=== PATIENT | male | born 1985 | race Caucasian/White ===

== ENCOUNTER 2017-04-21 13:17 | Emergency (ER) | payer MEDICAID ==
[~2017-04-21] VITALS: Ht 182.9 cm; Wt 106.5 kg
[2017-04-21 13:20] VITALS: Ht 182.9 cm; Wt 106.5 kg
[2017-04-21] MEDS ORDERED: IBUP-1542 PO (14:21)
[2017-04-21] MEDS ORDERED: AMO500 PO (14:22)
--- NOTE | 2017-04-21 14:28 | ERD ---
ER Documentation Chief Complaint Date/Time DATE: 04/21/17 TIME: 14:25 Chief Complaint left ear pain HPI Patient is a 32-year-old male presents to the ED with left ear pain 1 week. Patient denies any active discharge or bleeding. Patient denies any recent water activities. Patient denies any fevers, rhinorrhea, cough, sore throat, chest pain, shortness of breath or loss consciousness. Of note patient does have sick contacts at home. No recent travel. ROS All systems reviewed and are negative except as per history of present illness. 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 Appears in no acute distress. HEAD: Normocephalic, atraumatic. Facial abnormality noted, congenital. EYES: Pupils are equally reactive bilaterally. EOMs grossly intact. No conjunctival erythema. 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 Left auditory canal appears erythematous. Left tympanic membrane appears erythematous. Moist mucous membranes. No uvula deviation. No kissing tonsils. Nontender to bilateral mastoid processes NECK: Supple. No meningismus. Normal range of motion of the neck. LUNG: Clear to auscultation bilaterally. No rhonchi, wheezing, rales or coarse breath sounds. HEART: Regular rate and rhythm. No murmurs, rubs or gallops. EXTREMITIES: Equal pulses bilaterally. No peripheral clubbing, cyanosis or edema. No unilateral leg swelling. NEUROLOGIC: Alert and oriented. Moving all four extremities without any difficulty. Normal speech. Steady gait. SKIN: Normal color. Warm and dry. No rashes or lesions. Procedures/MDM MEDICAL DECISION MAKING: Patient is a 38-year-old male who presents with left ear pain 1 week. Vital signs were reviewed. Patient was afebrile. Patient was not hypoxic. At this time , patient's presentation is most consistent with otitis externa and acute otitis media of the left ear. I have a much lower clinical suspicion for tympanic membrane perforation, mastoiditis, otic barotrauma, TMJ dysfunction. PRESCRIPTIONS: Amoxicillin, ibuprofen DISCHARGE: At this time, patient is stable for discharge and outpatient management. I have instructed the patient to follow-up with his/her primary care physician in 1-2 days. I have discussed with the patient the possibility of needing to see a specialist for further workup and diagnostic studies if the pain persists. I have instructed the patient to promptly return to the ER at any time for any new or worsening symptoms including increased pain, fever, swelling, discharge or hearing loss. The patient and/or family expressed understanding of and agreement with this plan. All questions were answered. Home care instructions were provided. Departure Diagnosis: Primary Impression: Otitis media Otitis media type: unspecified Laterality: left Chronicity: unspecified Qualified Code: H66.92 - Left otitis media, unspecified chronicity, unspecified otitis media type Condition: Stable Patient Instructions: Otitis Media, Abx Tx (Adult) Referrals: [facility] YOU HAVE RECEIVED A MEDICAL SCREENING EXAM AND THE RESULTS INDICATE THAT YOU DO NOT HAVE A CONDITION THAT REQUIRES URGENT TREATMENT IN THE EMERGENCY DEPARTMENT. FURTHER EVALUATION AND TREATMENT OF YOUR CONDITION CAN WAIT UNTIL YOU ARE SEEN IN YOUR DOCTORS OFFICE WITHIN THE NEXT 1-2 DAYS. IT IS YOUR RESPONSIBILITY TO MAKE AN APPOINTMENT FOR FOLOW-UP CARE. IF YOU HAVE A PRIMARY DOCTOR --you should call your primary doctor and schedule an appointment IF YOU DO NOT HAVE A PRIMARY DOCTOR YOU CAN CALL OUR PHYSICIAN REFERRAL HOTLINE AT IF YOU CAN NOT AFFORD TO SEE A PHYSICIAN YOU CAN CHOSE FROM THE FOLLOWING [facility] [address] [facility]. [facility] [address] [facility] [address] [facility] [address] [facility]. [facility] [address] [facility]. [facility]. [address] [facility]. [facility] YOU HAVE RECEIVED A MEDICAL SCREENING EXAM AND THE RESULTS INDICATE THAT YOU DO NOT HAVE A CONDITION THAT REQUIRES URGENT TREATMENT IN THE EMERGENCY DEPARTMENT. FURTHER EVALUATION AND TREATMENT OF YOUR CONDITION CAN WAIT UNTIL YOU ARE SEEN IN YOUR DOCTORS OFFICE WITHIN THE NEXT 1-2 DAYS. IT IS YOUR RESPONSIBILITY TO MAKE AN APPOINTMENT FOR FOLOW-UP CARE. IF YOU HAVE A PRIMARY DOCTOR --you should call your primary doctor and schedule and appointment IF YOU DO NOT HAVE A PRIMARY DOCTOR YOU CAN CALL OUR PHYSICIAN REFERRAL HOTLINE AT . IF YOU CAN NOT AFFORD TO SEE A PHYSICIAN YOU CAN CHOSE FROM THE FOLLOWING [facility] INSTITUTIONS: [facility] [address] [place] [address] [facility] [address] [place], [place] [id number] [place] [address] [address] [place] [address] Additional Instructions: Llame al doctor MAANA y roderick vickey ADY PARA DENTRO DE 1-2 BELTRÁN.Dgale a la secretaria que nosotros le instruimos hacer esta ady.Avise o llame si medina condicin se empeora antes de la ady. Regresa aqui si peor o no mejor. ANT MARTINEZ PA-C Apr 21, 2017 14:28
== END 2017-04-21 14:28 | disposition home or self-care (01) ==
LOC: E/R 13:17
DX: H66.92 Otitis media, unspecified, left ear (principal)
CPT/HCPCS: 99283

== ENCOUNTER 2017-08-26 21:04 | Emergency (ER) | payer MEDICAID ==
[~2017-08-26] VITALS: Ht 177.8 cm; Wt 108.0 kg
[~2017-08-26 21:04] MED LIST: AMOX500C2 PO; IBUP-1542 PO
[2017-08-26 21:09] VITALS: Ht 177.8 cm; Wt 108.0 kg
[2017-08-27] MEDS ORDERED: FLUORESCEIN STRIP LEFT EYE ONE (02:30)
[2017-08-27] MEDS ORDERED: TETRACAINE 0.5% 4 ML OPH LEFT EYE ONE (02:30)
--- NOTE | 2017-08-27 02:40 | ERD ---
ER Documentation Chief Complaint Date/Time DATE: 08/27/17 TIME: 02:39 Chief Complaint c/o left eye pain. States there is a piece of tile on eye. Vision OK HPI 32-year-old male presents to emergency department for complaints of a foreign body sensation in the left eye, patient was cutting tile, a piece of it went inside his left eye. Patient's complaint of pain sharp pain, 4/10 scale, as was upon opening and closing the eye, is complaining of tearing. Patient denies any vision changes. ROS All systems reviewed and are negative except as per history of present illness. Medications Home Meds Active Scripts Moxifloxacin Hcl* (Vigamox*) 0.5% - 3 Ml Opht, 1 DROP LEFT EYE TID, #1 EA Prov:CHULA FERRARI NP 08/27/17 Amoxicillin* (Amoxicillin*) 500 Mg Cap, 500 MG PO BID for 10 Days, CAP Prov:ANT MARTINEZ PA-C 04/21/17 Ibuprofen* (Motrin*) 600 Mg Tab, 600 MG PO Q6, #15 TAB Prov:ANT MARTINEZ PA-C 04/21/17 Reported Medications [None] No Conflict Check 06/26/13 Allergies Allergies: Coded Allergies: No Known Drug Allergies (Verified Allergy, 06/26/13) PMhx/Soc History of Surgery: Yes (APPENDECTOMY) Anesthesia Reaction: No Hx Neurological Disorder: No Hx Respiratory Disorders: No Hx Cardiac Disorders: No Hx Psychiatric Problems: No 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 Bilateral eyes are PERRLA EOM intact, left eye conjunctiva noted to be erythematous. Ears: Normal tympanic membrane, no erythema or bulging. No ear canal swelling. No ear discharge. Nose: normal nasal turbinates , no erythema or swelling. Normal nasal discharge. Throat: oropharynx clear. No tonsillar swelling or tonsillar exudates. No lymphadenopathy. CHEST: Clear to auscultation bilaterally. There are no rales, wheezes or rhonchi. HEART: Regular rate and rhythm. No murmurs, clicks, rubs or gallops. No S3 or S4. ABDOMEN: Soft, nontender and nondistended. Good bowel sounds. No rebound or guarding. No gross peritonitis. No gross organomegaly or masses. No Kyle sign or McBurney point tenderness. BACK: No midline or flank tenderness. EXTREMITIES: Equal pulses bilaterally. There is no peripheral clubbing, cyanosis or edema. No focal swelling or erythema. Full range of motion. Grossly neurovascularly intact. NEURO: Alert and oriented. Cranial nerves 2-12 intact. Motor strength in all 4 extremities with 5/5 strength. Sensation grossly intact. Normal speech and gait. SKIN: There is no apparent rash or petechia. The skin is warm and dry. HEMATOLOGIC AND LYMPHATIC: There is no evidence of excessive bruising or lymphedema. No gross cervical, axillary, or inguinal lymphadenopathy. Results 24 hrs Current Medications Medications (Trade) Dose Ordered Sig/Honey Route PRN Reason Start Time Stop Time Status Last Admin Dose Admin Tetracaine HCl (Tetracaine 0.5% Steri-Unit Cathy) 1 drop ONCE ONCE LEFT EYE 08/27/17 02:30 08/27/17 02:31 DC Fluorescein Sodium (Pagsr-I-Yxejx) 1 strip ONCE ONCE LEFT EYE 08/27/17 02:30 08/27/17 02:31 DC Irrigating Solution (Eye Wash) 1 applic ONCE ONCE LEFT EYE 08/27/17 03:30 08/27/17 03:31 Procedures/[facility] Procedure Note: After obtaining informed consent, the left eye was stained using fluorescein dye. After staining the eye, A Wood's lamp was used to evaluate the eye. There is no foreign body noted in the eye. No corneal abrasions noted. Patient tolerated procedure well. Eye wash was done afterwards. Medical decision making: Patient symptoms was likely is consistent with conjunctival abrasion. No foreign body, no corneal abrasion noted. No symptoms of any other eye emergencies at this time. Prescription was given for Vigamox, is advised to see ophthalmology doctor for further evaluation of symptoms. Patient is advised to return to emergency department for any worsening symptoms. Disposition: Home. Stable. Departure Diagnosis: Primary Impression: Conjunctival abrasion Encounter type: initial encounter Laterality: left Qualified Code: S05.02XA - Abrasion of left conjunctiva, initial encounter Condition: Stable CHULA FERRARI NP Aug 27, 2017 02:40
[2017-08-27] MEDS ORDERED: VIGA LEFT EYE (03:18)
[2017-08-27] MEDS ORDERED: OPHTHALMIC IRRIG SOLUTION 120 ML LEFT EYE ONE (03:30)
== END 2017-08-27 04:03 | disposition home or self-care (01) ==
LOC: FTE 21:04
DX: S05.02XA Injury of conjunctiva and corneal abrasion without foreign body, left eye, initial encounter (principal); F17.210 Nicotine dependence, cigarettes, uncomplicated; X58.XXXA Exposure to other specified factors, initial encounter; Y92.9 Unspecified place or not applicable
CPT/HCPCS: Z7502; Z7610; 99283

== ENCOUNTER 2018-02-23 02:00 | Emergency (ER) | END 2018-02-23 05:09 | disposition home or self-care (01) ==

== ENCOUNTER 2018-11-12 20:22 | Emergency (ER) | payer MEDICAID ==
[~2018-11-12] VITALS: Ht 180.3 cm; Wt 113.0 kg
[~2018-11-12 20:22] MED LIST changes: +HYDR-4011 PO; +NAPR-985 PO; +VIGA LEFT EYE
[2018-11-12 20:25] VITALS: Ht 180.3 cm; Wt 113.0 kg
[2018-11-13] MEDS ORDERED: ONDANSETRON 4 MG INJ IV STA (00:12)
[2018-11-13] MEDS ORDERED: morphine 4 MG/ML VIAL IV STA (00:12)
--- NOTE | 2018-11-13 01:45 | ERD ---
ER Documentation Chief Complaint Chief Complaint chest pain since 0300am HPI This is a 33-year-old male who said he had the onset yesterday morning, November 12, at 3 AM with sharp parasternal chest pain described as sharp tearing sens ation. He said he had no lifting pushing pulling injury. He said that the pain is worse when he moves somewhat. He said that he had a brief cough. He said that he was short of breath at the onset but not since then. He said that he tried taking some Tums but it did not change. He took some Tylenol which helped a little bit. No palpitations dizziness or syncope. ROS All systems reviewed and are negative except as per history of present illness. Medications Home Meds Reported Medications Acetaminophen* (Acetaminophen*) 500 MG Extra Strength Tablet, 1000 MG PO Q4H PRN for PAIN AND OR ELEVATED TEMP, TAB 11/13/18 Discontinued Reported Medications [None] No Conflict Check 06/26/13 Discontinued Scripts Hydrocodone/Acetaminophen ([place] 5-325 Tablet) 1 Each Tablet, 1 TAB PO Q6H PRN for PAIN, #7 TAB Prov:GINGER BROWER PA-C 02/23/18 Naproxen* (Naprosyn*) 500 Mg Tablet, 500 MG PO BID PRN for PAIN AND/OR INFLAMMATION, #30 TAB Prov:BEAU HOWARD PA-C 02/23/18 Moxifloxacin Hcl* (Vigamox*) 0.5% - 3 Ml Opht, 1 DROP LEFT EYE TID, #1 EA Prov:CHULA FERRARI NP 08/27/17 Amoxicillin* (Amoxicillin*) 500 Mg Cap, 500 MG PO BID for 10 Days, CAP Prov:ANT MARTINEZ PA-C 04/21/17 Ibuprofen* (Motrin*) 600 Mg Tab, 600 MG PO Q6, #15 TAB Prov:ANT MARTINEZ PA-C 04/21/17 Allergies Allergies: Coded Allergies: No Known Drug Allergies (Unverified Allergy, Unknown, 11/13/18) PMhx/Soc History of Surgery: Yes (APPENDECTOMY) Anesthesia Reaction: No Hx Neurological Disorder: No Hx Respiratory Disorders: No Hx Cardiac Disorders: No Hx Psychiatric Problems: No 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 Neck: Full range of motion. No meningismus, no lymphadenopathy. Resp: Clear to auscultation bilaterally, no wheezing, rhonchi, rales, there is reproducible chest pain to the bilateral parasternal costal sternal margins with palpation. I had the patient sit up from supine he said that hurt when he sat up doing the motion with his thoracic trunk Cardio: Regular rate and rhythm, no murmurs, S1 S2 present Abd: Soft, non tender x 4, non distended. Normal bowel sounds, no guarding or rebound, no pulsitile abdominal masses or bruits Skin: No petechiae or rashes, no ecchymosis , no maculopapular rash Back: No midline or flank tenderness Ext: No cyanosis, or edema, FROM x 4, normal inspection, neurovascularly intact x 4 Neur: Awake and alert, STR 5/5 x 4, sensation intact x 4, no focal findings, cerebellum intact Psych: Normal Mood and Affect Result Diagram: 11/13/185 11/13/18 0045 Results 24 hrs Laboratory Tests Test 11/13/18 00:45 White Blood Count 11.8 10^3/ul Red Blood Count 5.31 10^6/ul Hemoglobin 16.5 g/dl Hematocrit 47.7 % Mean Corpuscular Volume 89.8 fl Mean Corpuscular Hemoglobin 31.1 pg Mean Corpuscular Hemoglobin Concent 34.6 g/dl Red Cell Distribution Width 12.4 % Platelet Count 262 10^3/UL Mean Platelet Volume 10.0 fl Immature Granulocytes % 0.300 % Neutrophils % 64.9 % Lymphocytes % 23.8 % Monocytes % 6.9 % Eosinophils % 3.7 % Basophils % 0.4 % Nucleated Red Blood Cells % 0.0 /100WBC Immature Granulocytes # 0.040 10^3/ul Neutrophils # 7.6 10^3/ul Lymphocytes # 2.8 10^3/ul Monocytes # 0.8 10^3/ul Eosinophils # 0.4 10^3/ul Basophils # 0.1 10^3/ul Nucleated Red Blood Cells # 0.0 10^3/ul Sodium Level 141 mmol/L Potassium Level 3.9 mmol/L Chloride Level 99 mmol/L Carbon Dioxide Level 31 mmol/L Anion Gap 11 Blood Urea Nitrogen 13 mg/dl Creatinine 0.69 mg/dl Est Glomerular Filtrat Rate mL/min > 60 mL/min Glucose Level 112 mg/dl Calcium Level 10.3 mg/dl Troponin I < 0.012 ng/ml Current Medications Medications Dose Sig/Honey Start Time Status Last (Trade) Ordered Route PRN Stop Time Admin Dose Reason Admin Morphine 4 mg ONCE STAT 11/13/18 DC 11/13/18 Sulfate IV 00:12 11/13/18 01:04 (morphine) 00:20 Ondansetron 4 mg ONCE STAT 11/13/18 DC 11/13/18 HCl (Zofran IV 00:12 11/13/18 01:04 Inj) 00:20 Sodium 100 ml @ ud STK-MED 11/13/18 DC 11/13/18 Chloride ONCE .ROUTE 02:06 11/13/18 02:09 02:07 Iohexol 150 ml STK-MED 11/13/18 DC 11/13/18 (Omnipaque ONCE .ROUTE 02:06 11/13/18 02:09 300mg/ ml) 02:07 Procedures/MDM EKG: Rate/Rhythm: Normal sinus rhythm in the right superior axis QRS, ST, QT: NORMAL ME, QRS, QT] Impression: NORMAL EKG Ordering MD: HARVINDER EDWARDS DO Location: E/R Room/Bed: PROCEDURE: CT ANGIOGRAM CHEST, PULMONARY EMBOLISM PROTOCOL CLINICAL INDICATION: Chest pain and shortness of breath. Evaluate for PE. TECHNIQUE: CT pulmonary angiogram of the chest was performed. Coronal and sagittal reformatted images were obtained from the axial source images. Images were reviewed on a high-resolution PACS workstation. 3-D post processing was not performed. Maximum intensity projection images were reconstructed on PACS. DICOM images are available. Intravenous Contrast Medium Administered: 100 mL of Omnipaque-300 Image acquisition by series (and radiation doses in CTDIvol): 35.21, 17.90 mGy. Estimated cumulative dose or total hzav-kaqgju-vonxset (DLP) is: 811.29 mGy-cm. Cardiac Gating: None. One or more of the following dose reduction techniques were used: - Automated exposure control. - Adjustment of the mA and/or kV according to patient size. - Use of iterative reconstruction technique. COMPARISON: None available. FINDINGS: CARDIOVASCULAR: Diagnostic quality: Contrast opacification of the pulmonary arterial circulation is adequate for assessment of pulmonary embolism. Study is not significantly limited by respiratory motion artifact. Pulmonary arteries: No filling defects to suggest pulmonary embolism to the level of the subsegmental branches of the pulmonary arteries. Not enlarged. Heart: No interventricular septal deviation. Normal in size. No significant coronary artery calcification. No significant valvular calcification. Pericardium: No pericardial effusion. Thoracic aorta: No significant abnormality. There is no aortic atherosclerotic calcification. REMAINING CHEST: Medical devices: None. Thyroid: Normal. Lymph nodes: No supraclavicular, axillary, mediastinal, or hilar lymphadenopathy. Other mediastinal structures: Residual thymic tissue. Airways: No significant abnormality. Lung parenchyma: No significant abnormality. Pleura: No significant abnormality. Chest wall: No significant abnormality. Upper abdomen: Hepatomegaly. Diffuse decreased hepatic attenuation likely on the basis of hepatic steatosis. Musculoskeletal: No acute fracture. No suspicious bone lesions. IMPRESSION: 1. No evidence of a pulmonary embolus. 2. Hepatomegaly with diffuse decreased hepatic attenuation likely on the basis of hepatic steatosis. RPTAT: HRSR Physician Sasha Date Time Electronically viewed and signed by Physician Sasha on 11/13/2018 01:51 RR/ CC: HARVINDER EDWARDS DO [id number] No evidence of pulmonary embolism the aorta looks okay. Patient's pain is likely due to a musculoskeletal/costochondritis issue. Pain is worse with palpation pain is worse with movement of the trunk. Troponin is negative, workup is unremarkable for cardiac etiology. Patient feels much better at this time, and vital signs are normal, symptoms have improved. I did give strict instructions to return to the ED if symptoms continue or worsen, patient will otherwise follow-up with primary care physician. Patient understood instructions and agreed to plan. Disclaimer: Inadvertent spelling and grammatical errors are likely due to EHR/dictation software use and do not reflect on the overall quality of patient care. Also, please note that the electronic time recorded on this note does not necessarily reflect the actual time of the patient encounter. Departure Diagnosis: Primary Impression: Chest wall pain Condition: Stable HARVINDER EDWARDS DO Nov 13, 2018 01:45
[2018-11-13] MEDS ORDERED: ACET-141 PO (02:01)
[2018-11-13] MEDS ORDERED: IOHEXOL 300MG/ML 150 ML BTL ONE (02:06)
[2018-11-13] MEDS ORDERED: SOD CHLORIDE 0.9% 100 ML ONE (02:06)
[2018-11-13] MEDS ORDERED: TRAM50TA2 PO (02:33)
[2018-11-13] MEDS ORDERED: IBUP800T48 PO (02:33)
[2018-11-13 02:55] VITALS: BP 133/97; PULSE 82; RESP 20
== END 2018-11-13 03:38 | disposition home or self-care (01) ==
LOC: E/R 20:22
DX: R07.9 Chest pain, unspecified (principal); F17.210 Nicotine dependence, cigarettes, uncomplicated
CPT/HCPCS: 36415; 71275; 80048; 84484; 85025; 93005; 96374; 96375; J2270; J2405; Q9967; Z7502; Z7610